=== PATIENT | female | born 1955 | race American Indian/Alaskan Native ===

== ENCOUNTER 2017-04-05 08:44 | Outpatient (CLI) | payer MEDICAID, OTHER ==
[2017-04-05] MEDS ORDERED: PROVENTIL IH ONE (09:54)
== END 2017-04-05 08:45 | disposition home or self-care (01) ==
LOC: PF 08:44
PROVIDERS: ATTEND Internal Medicine
DX: J44.9 Chronic obstructive pulmonary disease, unspecified (principal); J45.909 Unspecified asthma, uncomplicated; I10 Essential (primary) hypertension; E55.9 Vitamin D deficiency, unspecified
CPT/HCPCS: 94060; 94640